=== PATIENT | female | born 1965 | race Caucasian/White ===

== ENCOUNTER → 2023-01-21 07:47 | Outpatient (CLI) | payer OTHER, SELFPAY ==
--- NOTE | 2023-01-21 | DI.MG.S_ITS ---
BILATERAL DIGITAL DIAGNOSTIC MAMMOGRAM 3D/2D WITH ADDITIONAL VIEWS: 01/21/2023 CLINICAL: Additional evaluation requested from prior study. Comparison is made to exam dated: 01/08/2023 mammogram - [facility]. There are scattered areas of fibroglandular density in both breasts (category b / 25%-50% glandular tissue). There is a 7 mm oval mass with a circumscribed margin in the right breast lower outer quadrant at 7 o'clock middle depth. There is an 11 mm oval mass with a circumscribed margin in the left breast at 6 o'clock middle depth. No other significant masses or calcifications are seen in either breast. IMPRESSION: INCOMPLETE: NEEDS ADDITIONAL IMAGING EVALUATION Right breast 7 mm oval mass in the lower outer quadrant at 7 o'clock anterior depth. Recommend further evaluation with targeted right breast ultrasound, which will immediately follow this exam. Left breast 11 mm oval mass at 6 o'clock middle depth. Recommend further evaluation with targeted left breast ultrasound, which will immediately follow this exam. Based on the Tyrer Cuzick model (a risk assessment model) the patient's lifetime risk is 4.9% and her 10 year risk is 1.7%. According to the ACR, ACS, and NCCN guidelines, an annual breast MRI exam along with mammogram is recommended if the patient's lifetime risk is 20% or greater. This exam was interpreted at Station ID: [id number]. NOTE: For mammograms, a report in lay terms will be sent to the patient. Approximately 15% of breast malignancies will not be visualized mammographically. In the management of a palpable breast mass, a negative mammogram must not discourage biopsy of a clinically suspicious lesion. Electronically Signed By: Yeimy shayb/:01/21/2023 08:38:54 copy to: Corie Márquez D.O., [facility], ph: [phone], fax: [phone] ACR BI-RADS Category 0: Incomplete 3340F
--- NOTE | 2023-01-21 | DI.US.S_ITS ---
LIMITED ULTRASOUND OF RIGHT BREAST AND AXILLA: 01/21/2023 CLINICAL: Patient returns today to evaluate a focal asymmetry in the right breast. Comparison is made to exams dated: 01/21/2023 mammogram - [facility] and 01/08/2023 mammogram - [facility]. Color flow and real-time ultrasound of the right breast 6-9 o'clock, and axilla regions were performed. No definite sonographic correlate for mammographic mass seen in the lower outer quadrant. There are incidental benign cysts and clusters of microcysts seen in the lower outer quadrant. IMPRESSION: PROBABLY BENIGN No definite sonographic correlate for oval circumscribed mass in the lower outer quadrant seen on baseline mammogram. Finding is probably benign. Recommend right breast mammogram in 6 months to demonstrate stability. Of note, patient reports prior mammograms at outside facility, which are not available at time of diagnostic imaging. If they become available, recommendations can be adjusted accordingly. Findings and recommendations were conveyed to the patient during today's evaluation. This exam was interpreted at Station ID: [id number]. Electronically Signed By: Yeimy shayb/:01/22/2023 14:47:43 Entry: - 01/22/2023 14:47:43 copy to: Corie Márquez D.O., [facility], ph: [phone], fax: [phone] letter sent: Followup Recommended Ultrasound BI-RADS: 3 Probably benign
--- NOTE | 2023-01-21 | DI.US.S_ITS ---
ULTRASOUND OF LEFT BREAST: 01/21/2023 CLINICAL: Patient returns today to evaluate a focal asymmetry in the left breast. Comparison is made to exams dated: 01/21/2023 mammogram - [facility] and 01/08/2023 mammogram - [facility]. Color flow and real-time ultrasound of the left breast were performed. There is a 9 mm x 6 mm x 8 mm simple cyst in the left breast at 6 o'clock, 3 cm from the nipple. The cyst corresponds to mass seen on mammogram. There is an adjacent smaller cyst. No other significant abnormalities were seen sonographically in the left breast. IMPRESSION: BENIGN Left breast simple cyst at 6 o'clock position. No sonographic or mammographic evidence of malignancy. A 1 year screening mammogram of the left breast is recommended. Findings and recommendations were conveyed to the patient during today's evaluation. This exam was interpreted at Station ID: [id number]. Electronically Signed By: Yeimy Werner M.D. esb/:01/22/2023 00:16:42 copy to: Corie Márquez D.O., [facility], ph: [phone], fax: [phone] letter sent: Normal Exam Ultrasound BI-RADS: 2 Benign
== END ==
PROVIDERS: Referring Provider Family Medicine; Visit Provider Family Medicine
DX: R92.8 Other abnormal and inconclusive findings on diagnostic imaging of breast (principal); N63.13 Unspecified lump in the right breast, lower outer quadrant; N60.02 Solitary cyst of left breast
CPT/HCPCS: 76642; 77066; G0279

== ENCOUNTER → 2023-08-20 09:59 | Outpatient (CLI) | payer OTHER, SELFPAY ==
--- NOTE | 2023-08-20 10:03 | DI.MG.S_ITS ---
UNILATERAL RIGHT DIGITAL DIAGNOSTIC MAMMOGRAM 3D/2D: 08/20/2023 CLINICAL: Patient returns for a 6 month follow up of the right breast. Comparison is made to exams dated: 01/21/2023 mammogram - [facility], 01/08/2023 mammogram - [facility], 08/26/2018 mammogram, and 01/29/2016 mammogram - [facility]. There are scattered areas of fibroglandular density in the right breast (category b / 25%-50% glandular tissue). There is a stable benign 7 mm oval mass with a circumscribed margin in the right breast at 7 o'clock anterior depth. This was not seen on the prior ultrasound. Additional prior mammograms have become available since the prior exam. This finding appears stable on more remote prior outside exams, and is therefore considered benign. No other significant masses or calcifications are seen in the breast. IMPRESSION: BENIGN There is no mammographic evidence of malignancy. Return to annual mammogram screening schedule is recommended. Future imaging is recommended as follows: 01/22/2024 screening mammogram. Based on the Tyrer Cuzick model (a risk assessment model) the patient's lifetime risk is 4.8% and her 10 year risk is 1.7%. According to the ACR, ACS, and NCCN guidelines, an annual breast MRI exam along with mammogram is recommended if the patient's lifetime risk is 20% or greater. This exam was interpreted at Station ID: [id number]. NOTE: For mammograms, a report in lay terms will be sent to the patient. Approximately 15% of breast malignancies will not be visualized mammographically. In the management of a palpable breast mass, a negative mammogram must not discourage biopsy of a clinically suspicious lesion. Electronically Signed By: Ray berry/gretchen:08/20/2023 14:51:49 copy to: Corie Márquez D.O., [facility], ph: [phone], fax: [phone] letter sent: Normal Exam ACR BI-RADS Category 2: Benign Finding(s) 3341F
== END ==
LOC: MAMMO 10:00
DX: N63.13 Unspecified lump in the right breast, lower outer quadrant (principal); R92.321 Mammographic fibroglandular density, right breast
CPT/HCPCS: 77065; G0279